=== PATIENT | female | born 1965 | race Asian ===

== ENCOUNTER → 2019-01-22 | Outpatient (CLI) | payer OTHER | LOC: FLAB 10:38 | PROVIDERS: ATTEND Internal Medicine | DX: R91.8 Other nonspecific abnormal finding of lung field (principal); M19.049 Primary osteoarthritis, unspecified hand ==

== ENCOUNTER 2019-01-28 08:23 | Emergency (ER) | payer OTHER ==
[2019-01-28 08:30] VITALS: BP 106/76
[2019-01-28] MEDS ORDERED: IBUPROFEN 600 MG TAB PO ONE ×2 (09:04→09:07)
--- NOTE | 2019-01-28 09:06 | EDPHY ---
H & P Time Seen by Provider: 01/28/19 08:46 HPI/ROS: HPI Flu symptoms. 53-year-old immunocompetent female by private vehicle with her . This patient reports onset of fevers, chills, general malaise, muscle aches and joint aches, intermittent gradual onset frontal headaches, nausea but no vomiting, onset 36 hr ago. She has not been vaccinated for influenza. She took Tylenol with codeine prior to arrival. ROS: Constitutional: As above. Eyes: No discharge. No changes in vision. ENT: No sore throat. No nasal congestion or rhinorrhea. Respiratory: No cough. No shortness of breath. Cardiac: No chest pain, no palpitations. Gastrointestinal: No abdominal pain, no vomiting, no diarrhea. Genitourinary: No hematuria. No dysuria or increased frequency with urination. Musculoskeletal: No back pain. No neck pain. As above. Skin: No rashes. Neurological: As above. No focal weakness or altered sensation. Past medical history: No significant past medical history. Social history: Nonsmoker. No alcohol. Here with her . Physical Exam: General Appearance: Alert, she looks uncomfortable but not in distress. This patient is responding to questions appropriately and in full sentences. This patient appears well-hydrated and well-nourished. Eyes: Pupils equal and round no pallor or injection. No lid edema, erythema or injection. ENT, Mouth: Mucous membranes are moist. No edema or swelling. No asymmetry suggestive of abscess. Mild generalized pharyngeal erythema, no exudates. No cervical, submandibular, submental lymphadenopathy. Respiratory: There are no retractions, lungs are clear to auscultation with good air movement bilaterally. Cardiovascular: Regular rate and rhythm. No murmur appreciated. Gastrointestinal: Abdomen is soft and nontender, no masses, bowel sounds normal. No focal tenderness at McBurney's point. No Marin sign. Neurological: Motor sensory function is grossly intact. Cranial nerves are normal. Gait is normal. Skin: Warm and dry, no rashes. Musculoskeletal: Neck is supple and nontender. No pain on flexion of her neck. Extremities are symmetrical. All joints range without pain or impingement. Psychiatric: No agitation. No depression. Database: EKG: Imaging: Procedures: Emergency department course: Triage vital signs reviewed. She is febrile. Vital signs are otherwise within normal limits. She will be given 600 mg of ibuprofen for fever, myalgias and arthralgias. Her presentation is consistent with influenza. She is within the treatment window for Tamiflu. Plan will be to prescribe her Tamiflu as well as high-dose ibuprofen and Vicodin to be used at night for myalgias arthralgias to help her sleep. She feels comfortable going home with her and I think she is safe for discharge. Follow-up and return to emergency department precautions have been reviewed with her and her . All of their questions were answered. She was discharged from the emergency department in good condition with her . Differential Diagnosis: The differential diagnosis on this patient includes but is not limited to influenza, viral syndrome. Serious bacterial infection, pneumonia unlikely. This represents a partial list of diagnoses considered. These considerations are based on history, physical exam, past history, reassessment and diagnostic testing. Smoking Status: Never smoked Constitutional: Initial Vital Signs Temperature (C) 38.7 C H 01/28/19 08:28 Heart Rate 92 01/28/19 08:28 Respiratory Rate 16 01/28/19 08:28 Blood Pressure 106/76 01/28/19 08:28 O2 Sat (%) 94 01/28/19 08:28 O2 Delivery Mode Room Air Allergies/Adverse Reactions: No Known Allergies Allergy (Unverified 01/28/19 08:26) Home Medications: Medication Instructions Recorded Advil 01/28/19 Hydrocodone/APAP 5/325 [[place] 1 - 2 tab PO Q4-6PRN PRN #10 tab 01/28/19 5/325 (*)] Oseltamivir Phosphate [Tamiflu 75 75 mg PO BID #10 cap 01/28/19 mg (RX)] Oxycodone HCl 01/28/19 TYLENOL #3 01/28/19 Medical Decision Making - Data Points Medications Given: Discontinued Medications Ibuprofen (Motrin) 600 mg PO EDNOW ONE Stop: 01/28/19 09:08 Last Admin: 01/28/19 09:07 Dose: 600 mg Departure - Departure Disposition: Home, Routine, Self-Care Clinical Impression: Influenza Condition: Good Instructions: Influenza (ED) Additional Instructions: Read and follow provided instructions. Follow-up with your primary care physician in 1-2 days for re-evaluation. Ibuprofen dosin mg every 6 hours with meals for the next 3 days only. Take only as needed for pain. Narcotic pain medication: Take 1-2 every 4-6 hours as needed for muscle aches and joint aches and to help you sleep. Do not take additional Tylenol with this medication. Do not drive on this medication. Get plenty of rest. Keep herself well hydrated. Return to the emergency department for worsening symptoms or other serious concerns. Referrals: Cece Young MD [Primary Care Provider] - As per Instructions Prescriptions: Hydrocodone/APAP 5/325 [[place] 5/325 (*)] 1 - 2 tab PO Q4-6PRN PRN #10 tab PRN Reason: Pain, Moderate Oseltamivir Phosphate [Tamiflu 75 mg (RX)] 75 mg PO BID #10 cap
== END 2019-01-28 09:16 | disposition home or self-care (01) ==
DX: J11.1 Influenza due to unidentified influenza virus with other respiratory manifestations (principal)

== ENCOUNTER → 2019-02-19 | Outpatient (CLI) | payer OTHER | LOC: FIMAGING 16:31 | PROVIDERS: ATTEND Internal Medicine | DX: E04.2 Nontoxic multinodular goiter (principal) ==